=== PATIENT | male | born 1985 | race Caucasian/White ===

== ENCOUNTER 2021-05-11 05:04 | Emergency (ER) | payer BC, SELFPAY ==
--- NOTE | ~2021-05-11 | XR_ITS ---
EXAMINATION: XR chest 2V 05/11/2021 05:38 INDICATION: Fever and headache for 3 days PROCEDURE: PA and lateral views of the chest COMPARISON: 10/31/2017 FINDINGS: The lungs are clear. The cardiomediastinal silhouette is within normal limits. There are no pleural effusions. There is no pneumothorax suspected. IMPRESSION: 1: NO ACUTE CARDIOPULMONARY DISEASE. Reviewed, dictated and finalized at location A.
--- NOTE | 2021-05-11 05:08 | ED.HA ---
HPI - Headache General Chief Complaint: Headache Stated Complaint: Migraine, fever Time Seen by Provider: 05/11/21 05:08 History of Present Illness HPI Narrative: 36 yo male presents to the ED with a sore throat. He reports that he has had a sore throat for a few days. This was associated with intermittent fever and body aches. He was seen at urgent care earlier in the day and tested negative for Strep and COVID. This evening he developed a severe headache so he came into [facility] ED. Related Data Home Medications Medication Instructions Recorded Confirmed acetaminophen-codeine tablet 05/11/21 amoxicillin 05/11/21 05/11/21 atenolol 05/11/21 azithromycin 05/11/21 Allergies Allergy/AdvReac Type Severity Reaction Status Date / Time cefaclor Allergy Unknown Unknown Verified 05/11/21 06:01 cephalexin Allergy Unknown Unknown Verified 05/11/21 06:01 Review of Systems Review of Systems: All systems reviewed & are unremarkable except as noted in HPI and below Constitutional: Constitutional: Reports chills and Reports fever(s) Eyes: Eyes: Reports no additional eye complaints ENT: Denies dizziness, Denies nasal congestion and Reports sore throat Cardiovascular: Cardiovascular: Denies chest pain Respiratory: Respiratory: Denies cough and Denies dyspnea Gastrointestinal: Gastrointestinal: Denies abdominal pain Genitourinary: Genitourinary: Reports no additional male genitourinary complaints Musculoskeletal: Musculoskeletal: Reports myalgias Neurologic: Reports system reviewed and no additional complaints, except as documented and Reports headache(s) Exam Const: General: healthy appearing, no acute distress and alert Orientation/consciousness: patient oriented x3 HENMT: Head: normal to inspection Ears: TM's normal bilaterally General nose exam: Normal external nose present Face and sinus: normal facial exam Mouth: Yes Normal oral and palatal mucosa present Throat: abnormal tonsil bilateral hypertrophy and posterior oropharynx abnormal erythema Neck: Neck: normal visual inspection Resp: Effort & Inspection: normal respiratory effort Auscultation: clear to auscultation bilaterally, no rales, no rhonchi and no wheezes Cardio: Jugular venous distension: no JVD Rate: regular rate Rhythm: regular rhythm Heart sounds: no murmurs GI: Inspection: non-distended GI Palp: Yes Soft to palpation and No Tenderness to palpation present (GI) Skin: General skin exam: normal color Neuro: General: patient oriented x3, moves all extremities, no meningeal signs, no focal motor deficits and CN's II-XI intact bilaterally Speech: normal speech Gait exam (Neuro): Normal gait present Extrem: General: normal to inspection Psych: Appearance: well kempt Affect: normal affect Course Vital Signs Vital signs: Vital Signs Temperature 37.1 C 05/11/21 05:10 Pulse Rate 82 05/11/21 05:10 Respiratory Rate 20 05/11/21 05:10 Blood Pressure 143/108 H 05/11/21 05:10 Pulse Oximetry 96 05/11/21 05:10 Temperature 37.1 C 05/11/21 05:10 Pulse Rate 72 05/11/21 06:50 Respiratory Rate 18 05/11/21 06:50 Blood Pressure 116/82 05/11/21 06:50 Pulse Oximetry 96 05/11/21 06:50 MDM - Headache MDM Narrative Medical decision making narrative: feeling better after symptomatic treatment. Most likely viral pharyngitis. Differential Diagnosis Differential diagnosis: Likely migraine, headache and other (pharygitis, viral infection) Medical Records Attestation: I reviewed the patient's medical records. Lab Data Attestation: I reviewed the patient's lab results. Result diagrams: 05/11/21 05:41 05/11/21 05:41 Labs: Lab Results 05/11/21 05/11/21 05/11/21 Range/Units 05:41 05:41 05:41 WBC 10.8 H (4.5-10.0) K/mm3 RBC 5.35 (4.6-6.20) M/mm3 Hgb 15.9 (14.0-18.0) g/dL Hct 48.6 (42.0-52.0) % MCV 90.8 (80-100) fl MCH 29.7 (26-34) pg MCHC 32.7 (32-36
[2021-05-11 05:10] VITALS: BP 143/108; PULSE 82; RESP 20; TEMP 37.1; O2SAT 96
[2021-05-11] MEDS: METOCLOPRAMIDE HCL INJ 10 MG/2 ML VIAL IV PUSH (05:32)
[2021-05-11] MEDS: SODIUM CHLORIDE 0.9% IV 1,000 ML 999 ML IV CONT (05:32)
[2021-05-11] MEDS: KETOROLAC 30 MG/ML VIAL (*BKC) IV PUSH (05:32)
[2021-05-11 05:55] LABS: Basophils Percent Auto 0.1 % (0.2-1.2); Eosinophils Percent Auto 0.2 % (0-4.4); Hematocrit 48.6 % (42.0-52.0); Hemoglobin 15.9 g/dL (14.0-18.0); Immature Granulocyte Absolute 0.05 K/mm3 (0.00-0.031); Immature Granulocyte Percent A 0.5 % (0-0.5); Lymphocytes Percent Auto 8.4 % (18.3-44.2); Mean Corpuscular HGB Conc 32.7 g/dl (32-36); Mean Corpuscular Hemoglobin 29.7 pg (26-34); Mean Corpuscular Volume 90.8 fl (80-100); Mean Platelet Volume 9.7 fl (7.4-10.4); Monocytes Absolute Auto 1.2 K/mm3 (0.1-0.6); Monocytes Percent Auto 11.2 % (2.6-8.5); Neutrophils Absolute Auto 8.6 K/mm3 (1.3-6.7); Neutrophils Percent Auto 79.6 % (45.5-73.1); Platelet Count Result 210 k/mm3 (150-375); Red Blood Count 5.35 M/mm3 (4.6-6.20); Red Cell Distribution Width 13.1 % (11.5-14.5); White Blood Count 10.8 K/mm3 (4.5-10.0)
[2021-05-11 06:00] VITALS: BP 127/85; PULSE 69; RESP 18; O2SAT 95
[2021-05-11 06:08] LABS: Anion Gap 10 mmol/L (8-16); Blood Urea Nitrogen 11 mg/dL (9-20); Calcium 9.2 mg/dL (8.4-10.2); Carbon Dioxide 27 mmol/L (22-30); Chloride 100 mmol/L (98-107); Estimated CRCL calculation 68 ml/min; Estimated Glomerular Filt Rate > 60; Glucose 109 mg/dL (75-110); Potassium 3.6 mmol/L (3.4-5.0); Sodium 137 mmol/L (137-145)
[2021-05-11 06:20] LABS: Monoscreen Negative (Negative); Negative Monotest Control Negative (Negative); Positive Monotest Control Positive (Positive)
[2021-05-11 06:50] VITALS: BP 116/82; PULSE 72; RESP 18; O2SAT 96
[2021-05-11] MEDS: DEXAMETHASONE SOD PHOS INJ 4 MG/ML VIAL 10 MG IV PUSH (07:09)
== END 2021-05-11 07:20 | disposition home or self-care (01) ==
PROVIDERS: Emergency Provider Emergency Medicine; PCP Physician Assistant
DX: J02.9 Acute pharyngitis, unspecified (principal)
CPT/HCPCS: 36415; 71046; 80048; 85025; 86308; 87880; 96361; 96374; 96375; 99284; J1100; J1885; J2765; J7030